=== PATIENT | female | born 1985 | race Caucasian/White ===

== ENCOUNTER 2022-08-13 09:02 | Emergency (ER) | payer OTHER ==
[~2022-08-13] VITALS: Ht 167.6 cm; Wt 90.7 kg
[2022-08-13 10:58] LABS: Influenza B, PCR NEGATIVE (NEGATIVE); Resp Syncytial Virus, PCR NEGATIVE (NEGATIVE); SARS-Cov-2 (COVID-19) PCR, MMC NEGATIVE (NEGATIVE)
[2022-08-13 11:05] LABS: Influenza A, PCR POSITIVE (NEGATIVE)
[2022-08-13] MEDS ORDERED: METO10 PO (11:48)
[2022-08-13] MEDS ORDERED: ONDA4ODT MM (11:48)
[2022-08-13] MEDS ORDERED: ALBU90OI INH (11:48)
== END 2022-08-13 11:55 | disposition home or self-care (01) ==
LOC: ER 09:02
PROVIDERS: Student in an Organized Health Care Education/Training Program
DX: J10.1 Influenza due to other identified influenza virus with other respiratory manifestations (principal); J45.909 Unspecified asthma, uncomplicated; Z88.8 Allergy status to other drugs, medicaments and biological substances; Z20.822 Contact with and (suspected) exposure to COVID-19
CPT/HCPCS: 0241U; 93005; 93010

== ENCOUNTER 2023-06-23 13:26 | Emergency (ER) | payer OTHER ==
[~2023-06-23] VITALS: Ht 167.6 cm; Wt 90.7 kg
[~2023-06-23 13:26] MED LIST: ALBU90OI INH; METO10 PO; ONDA4ODT MM
[2023-06-23 13:38] VITALS: BP 131/86
[2023-06-23] MEDS ORDERED: ESCI10 PO (13:40)
[2023-06-23] MEDS ORDERED: Zonegran100 MG PO (13:40)
== END 2023-06-23 13:55 | disposition home or self-care (01) ==
LOC: ER 13:26
DX: J02.8 Acute pharyngitis due to other specified organisms (principal); B97.89 Other viral agents as the cause of diseases classified elsewhere; Z88.8 Allergy status to other drugs, medicaments and biological substances; Z79.899 Other long term (current) drug therapy
CPT/HCPCS: 87081; 87430; 99283